=== PATIENT | female | born 1945 | race Caucasian/White ===

== ENCOUNTER 2017-11-10 13:52 | Emergency (ER) | payer MEDICARE ==
[2017-11-10] MEDS ORDERED: TETRACAINE HCL 0.5% OPH SOLN 2 ML ONE (14:14)
--- NOTE | 2017-11-10 14:44 | ER Document Report ---
ED General - General Chief Complaint: Eye Problem Stated Complaint: EYE IRRITATION/REDNESS Time Seen by Provider: 11/10/17 14:05 Mode of Arrival: Ambulatory Information source: Patient, Relative Notes: 72-year-old female with cataracts, depression, HSV-1 presents from urgent care with complaint of left eye visual change and redness. Patient states that last night she developed pain in her left eye while she was at [employer]. She states that she went to sleep and when she awoke this morning the pain was gone. She states that she did not noticed her eye was red until her daughter pointed it out. She does admit to some blurred vision in the left eye. Patient states at urgent care her visual acuity in the left eye was 20/70 this is a change from recent visual acuity of 20/15. Denies any trauma to the eye. She denies any blood thinning medications. Denies prior similar symptoms. Patient does wear eyeglasses. She denies any recent illnesses. Upon my exam patient is pain- free. She denies headache. She denies temporal artery tenderness. TRAVEL OUTSIDE OF THE [place] IN LAST 30 DAYS: No - HPI Onset: Yesterday Onset/Duration: Sudden Quality of pain: No pain Associated symptoms: None Exacerbated by: Denies Relieved by: Denies Similar symptoms previously: No Recently seen / treated by doctor: Yes - Related Data Allergies/Adverse Reactions: No Known Allergies Allergy (Verified 11/10/17 13:53) Past Medical History - General Information source: Patient - Social History Smoking Status: Former Smoker Chew tobacco use (# tins/day): No Frequency of alcohol use: None Drug Abuse: None Lives with: Spouse/Significant other Family History: Reviewed & Not Pertinent Patient has suicidal ideation: No Patient has homicidal ideation: No Renal/ Medical History: Denies: Hx Peritoneal Dialysis Psychiatric Medical History: Reports: Hx Depression Past Surgical History: Reports: Hx Orthopedic Surgery - R hand, Other - Bilateral cataract surgery Review of Systems - Review of Systems Notes: REVIEW OF SYSTEMS: CONSTITUTIONAL : Denies fever, chills, or sweats. Denies recent illness. Denies weight loss, recent hospitalizations. EENT: Denies eye pain. Denies nasal or sinus congestion or discharge. Denies sore throat, oral lesions, difficulty swallowing. CARDIOVASCULAR: Denies chest pain. Denies palpitations or racing or irregular heart beat. Denies lower extremity edema. RESPIRATORY: Denies cough, cold, or chest congestion. Denies shortness of breath, difficulty breathing, or wheezing. GASTROINTESTINAL: Denies abdominal pain or distention. Denies nausea, vomiting , or diarrhea. Denies blood in vomitus, stools, or per rectum. Denies black, tarry stools. Denies constipation. GENITOURINARY: Denies difficulty urinating, painful urination, burning, frequency, blood in urine, or vaginal discharge. MUSCULOSKELETAL: Denies back or neck pain or stiffness. Denies joint pain or swelling. SKIN: Denies rash, lesions or sores. HEMATOLOGIC : Denies easy bruising or bleeding. LYMPHATIC: Denies swollen, enlarged glands. NEUROLOGICAL: Denies confusion or altered mental status. Denies passing out or loss of consciousness. Denies dizziness or lightheadedness. Denies headache. Denies weakness or paralysis or loss of use of either side. Denies problems with gait or speech. Denies sensory loss, numbness, or tingling. Denies seizures. PSYCHIATRIC: Denies anxiety or stress. Denies depression, suicidal ideation, or homicidal ideation. Physical Exam - Notes Notes: PHYSICAL EXAMINATION: GENERAL: Well-appearing, well-nourished and in no acute distress. HEAD: Atraumatic, normocephalic. EYES: Pupils equal round and reactive to light, extraocular movements intact, extensive conjunctival hemorrhage of the left eye. No fluorescein uptake. Slit -lamp exam shows no hyphema, flare, corneal abrasion. ENT: Nares patent, oropharynx clear without exudates. Moist mucous membranes. NECK: Normal range of motion, supple without lymphadenopathy LUNGS: Breath sounds clear to auscultation bilaterally and equal. No wheezes rales or rhonchi. HEART: Regular rate and rhythm without murmurs ABDOMEN: Soft, nontender, nondistended abdomen. No guarding, no rebound. No masses appreciated. Female : deferred Musculoskeletal: Normal range of motion, no pitting or edema. No cyanosis. NEUROLOGICAL: Cranial nerves grossly intact. Normal speech, normal gait. Normal sensory, motor exams PSYCH: Normal mood, normal affect. SKIN: Warm, Dry, normal turgor, no rashes or lesions noted. - HEENT Visual acuity- Right eye: 20/20 Visual acuity- Left eye: 20/20 Visual acuity- Both eyes: 20/20 Corrective lenses worn: Yes Course - Re-evaluation Re-evalutation: 11/10/17 14:57 72-year-old female with cataracts, depression, HSV-1 presents from urgent care with complaint of left eye visual change and redness. Patient states that last night she developed pain in her left eye while she was at [employer]. She states that she went to sleep and when she awoke this morning the pain was gone. She states that she did not noticed her eye was red until her daughter pointed it out. She does admit to some blurred vision in the left eye. Patient states at urgent care her visual acuity in the left eye was 20/70 this is a change from recent visual acuity of 20/15. Denies any trauma to the eye. She denies any blood thinning medications. Denies prior similar symptoms. Patient does wear eyeglasses. She denies any recent illnesses. Upon my exam patient is pain- free. She denies headache. She denies temporal artery tenderness. Patient was seen by myself upon arrival. Vital signs were reviewed. Patient is afebrile , hypertensive and not hypoxic. Patient does not appear toxic or dehydrated. They are in no acute distress. Previous medical records and nursing notes reviewed. Significant findings include an extensive left subconjunctival hemorrhage. Patient has normal pressures of 20,18-OS , 18,20 OD, visual acuity is 20/20OD /OS/OU. Upon visual acuity patient states that her vision has greatly improved. She has no temporal artery tenderness, no significant findings on slit-lamp exam and has normal pressures. Exam is consistent with a large subconjunctival hemorrhage. Not consistent with retinal artery detachment, acute angle glaucoma, temporal arteritis. Patient provided the opportunity to ask questions, and express concerns. Discharge instructions discussed. Patient is agreeable with discharge home. Return indications explained and discussed with the patient who displays understanding. Patient encouraged to return to the emergency department immediately with any concerns. Patient was referred to [facility]. 11/10/17 15:08 Discharge - Discharge Clinical Impression: Subconjunctival hemorrhage of left eye Condition: Good Disposition: HOME, SELF-CARE Instructions: Subconjunctival Hemorrhage ([facility]) Additional Instructions: Follow up with your physician tomorrow for further care or return to the ED IMMEDIATELY if symptoms worsen or new concerns occur. If you cannot afford to follow up with your primary care physician a list of low cost clinics have been provided at the end of your discharge papers as well. Referrals: [facility] [Provider Group] - Follow up in 3-5 days
[2017-11-10 15:35] VITALS: BP 167/60
== END 2017-11-10 15:32 | disposition home or self-care (01) ==
LOC: ER 13:52
DX: H11.32 Conjunctival hemorrhage, left eye (principal); H26.9 Unspecified cataract; I10 Essential (primary) hypertension; Z87.891 Personal history of nicotine dependence
CPT/HCPCS: 99283

== ENCOUNTER 2019-09-09 17:43 | Emergency (ER) | payer MEDICARE ==
--- NOTE | 2019-09-09 17:54 | ER Document Report ---
ED Medical Screen (RME) - General Stated Complaint: POSSIBLE ETOH WITHDRAWAL Time Seen by Provider: 09/09/19 17:45 Mode of Arrival: Ambulatory Information source: Patient Notes: 74-year-old female patient presenting to the emergency department with complaints of shaking after drinking last night. Patient reports she drank an entire bottle of wine as she is very stressed out about the COVID-19 epidemic. She does report that she is an alcoholic. She states that usually when she drinks that she binge drinks. She does not believe she is withdrawing. She is very tearful in triage. I have greeted and performed a rapid initial assessment of this patient. A comprehensive ED assessment and evaluation of the patient, analysis of test results and completion of the medical decision making process will be conducted by additional ED providers. I have specifically instructed the patient or family members with the patient to immediately return to any nursing staff should anything change in the patient's condition or with their chief complaint. TRAVEL OUTSIDE OF THE [place] IN LAST 30 DAYS: No - Related Data Allergies/Adverse Reactions: No Known Allergies Allergy (Verified 11/10/17 13:53) Past Medical History Renal/ Medical History: Denies: Hx Peritoneal Dialysis Psychiatric Medical History: Reports: Hx Depression Past Surgical History: Reports: Hx Orthopedic Surgery - R hand, Other - Bilateral cataract surgery
[2019-09-09] MEDS ORDERED: LORAZEPAM INJ 2 MG/1 ML VIAL IV ONE (17:58)
--- NOTE | 2019-09-09 18:10 | ER Document Report ---
ED General - General Chief Complaint: Psych Problem Stated Complaint: POSSIBLE ETOH WITHDRAWAL Time Seen by Provider: 09/09/19 17:45 Mode of Arrival: Ambulatory Notes: 74-year-old female presents to the ER complaining of anxiety and tremors. The patient has a history of benign essential tremors. She has a history of alcoholism. She was doing well for a while but in July due to the pandemic she started drinking. She states she drinks about a bottle of wine a day. Her last drink was yesterday. She is not had anything to drink at all today. She is felt very tremulous. Era very anxious. Wants to come in and get checked out she denies any suicidal homicidal thoughts denies any hallucinations. Denies any history of seizures or delirium tremens upon withdrawal. The patient states she feels a little short of breath but denies chest pain. Feels very anxious all over. Denies fever chills cough or sore throat. Denies any falls or trauma. Her tremors and discomfort as severe. But attributes these to anxiety or withdrawal. The patient initially denied suicidal thoughts but now is endorsing suicidal thoughts. She wants to drive her car into a bridge or tree. Still denies homicidal ideation denies visual auditory hallucinations TRAVEL OUTSIDE OF THE [place] IN LAST 30 DAYS: No - Related Data Allergies/Adverse Reactions: No Known Allergies Allergy (Verified 11/10/17 13:53) Past Medical History - General Information source: Patient - Social History Smoking Status: Never Smoker Family History: Reviewed & Not Pertinent Patient has suicidal ideation: Yes Patient has homicidal ideation: No Renal/ Medical History: Denies: Hx Peritoneal Dialysis Psychiatric Medical History: Reports: Hx Depression Past Surgical History: Reports: Hx Orthopedic Surgery - R hand, Other - Bilateral cataract surgery Review of Systems - Review of Systems Constitutional: denies: Chills, Fever Cardiovascular: Dyspnea. denies: Chest pain Respiratory: Short of breath. denies: Cough Genitourinary: denies: Dysuria, Hematuria Neurological/Psychological: Anxiety, Tremor -: Yes All other systems reviewed and negative Physical Exam - Vital signs Vitals: Temp Pulse Resp BP Pulse Ox 98.9 F 104 H 24 H 150/90 H 97 09/09/19 17:46 09/09/19 17:46 09/09/19 17:46 09/09/19 17:46 09/09/19 17:46 - Notes Notes: GENERAL_APPEARANCE: well_nourished, alert, cooperative, anxious and tearful VITALS: reviewed, see vital signs table. HEAD: no_swelling\tenderness on the head. EYES: PERRL, EOMI, conjunctiva_clear. NOSE: no_nasal_discharge. MOUTH: (-)decreased moisture. THROAT: no_tonsilar_inflammation, no_airway_obstruction. no_lymphadenopathy NECK: supple, no_neck_tenderness, (-)thyromegaly. BACK: no_back_tenderness. CHEST_WALL: no_chest_tenderness. LUNGS: no_wheezing, no_rales, no_rhonchi, (-)accessory muscle use, good air exchange bilateral. HEART: normal_rate, normal_rhythm, normal_S1, normal_S2, (-)S3, (-)S4, no_murmur, no_rub. ABDOMEN: normal_BS, soft, no_abd_tenderness, (-)guarding, (-)rebound, no_organomegaly, no_abd_masses. EXTREMITIES: good pulses in all_extremities, no_swelling\tenderness in the extremities, no_edema. SKIN: warm, dry, good_color, no_rash. MENTAL_STATUS: speech_clear, oriented_X_3, anxious_affect, responds_appropriately to questions. NEURO: Neg Motor or Sensory Deficits on exam, CN 2-12 intact, DTR 2+ symmetric x 4, No cerbellar signs Course - Re-evaluation Re-evalutation: 09/09/19 18:09 74-year-old female presents with anxiety and possibly little alcohol withdrawal. We will check some generalized labs give her some IV fluids Ativan. 09/09/19 19:56 The patient now is endorsing suicidality with a plan to drive her car into something. We will continue giving her Ativan for withdrawal this may be just due to stress and anxiety from her alcohol withdrawal and anxiety. We will have the patient held in psychiatry until seen by psych in the morning. The patient is medically stable for inpatient psychiatric care at this time if required. Will prescribe PRN's. - Vital Signs Vital signs: Temp Pulse Resp BP Pulse Ox 98.9 F 104 H 16 150/90 H 94 09/09/19 17:46 09/09/19 17:46 09/09/19 19:00 09/09/19 17:46 09/09/19 19:00 - Laboratory Result Diagrams: 09/09/19 18:08 09/09/19 18:08 Laboratory results interpreted by me: 09/09/19 09/09/19 09/09/19 18:08 18:08 19:40 Hgb 15.6 H Glucose 121 H Ur Leukocyte Esterase TRACE H Urine Ascorbic Acid 40 H Salicylates < 1.0 L Acetaminophen < 10 L - EKG Interpretation by Me EKG shows normal: Sinus rhythm Rate: Normal Rhythm: NSR Discharge - Discharge Clinical Impression: Suicidal ideation, Anxiety Alcohol withdrawal Qualifiers: Complication of substance-induced condition: uncomplicated Qualified Code(s): F10.230 - Alcohol dependence with withdrawal, uncomplicated Condition: Good Disposition: OTHER
[2019-09-09 18:16] LABS: ABSOLUTE BASOPHILS # (AUTO) 0.1 10^3/uL (0.0-0.2); ABSOLUTE LYMPHOCYTES (AUTO) 2.1 10^3/uL (0.5-4.7); ABSOLUTE MONOCYTES (AUTO) 0.6 10^3/uL (0.1-1.4); ABSOLUTE NEUT (AUTO) 4.9 10^3/uL (1.7-8.2); BASOPHILS % (AUTO) 1.1 % (0-2); EOSINOPHILS % (AUTO) 0.2 % (0-6); HEMATOCRIT 45.3 % (36.0-47.0); HEMOGLOBIN 15.6 g/dL (12.0-15.5); LYMPHOCYTES % (AUTO) 27.5 % (13-45); MEAN CORPUSCULAR HEMOGLOBIN 31.2 pg (27.0-33.4); MEAN CORPUSCULAR HGB CONC 34.5 g/dL (32.0-36.0); MEAN CORPUSCULAR VOLUME 91 fl (80-97); MONOCYTES % (AUTO) 7.8 % (3-13); PLATELET COUNT 337 10^3/uL (150-450); RED BLOOD COUNT 5.01 10^6/uL (3.72-5.28); RED CELL DISTRIBUTION WIDTH 13.7 % (11.5-14.0); SEGMENTED NEUTROPHILS % (AUTO) 63.4 % (42-78); TOTAL CELLS COUNTED % (AUTO) 100 %; WHITE BLOOD COUNT 7.7 10^3/uL (4.0-10.5)
[2019-09-09 18:37] LABS: ALBUMIN 4.7 g/dL (3.5-5.0); ALKALINE PHOSPHATASE 89 U/L (38-126); ANION GAP 8 (5-19); ASPARTATE AMINO TRANSFERASE 25 U/L (14-36); BILIRUBIN,TOTAL 0.4 mg/dL (0.2-1.3); BLOOD UREA NITROGEN 11 mg/dL (7-20); CALCIUM 9.1 mg/dL (8.4-10.2); CARBON DIOXIDE 28 mmol/L (22-30); CHLORIDE 103 mmol/L (98-107); GLUCOSE 121 mg/dL (75-110); POTASSIUM 4.4 mmol/L (3.6-5.0); TOTAL PROTEIN 7.7 g/dL (6.3-8.2)
[2019-09-09 18:38] LABS: ACETAMINOPHEN < 10 ug/mL (10-30); ALCOHOL < 10 mg/dL (NONE DETECTED); SALICYLATE < 1.0 mg/dL (2.0-20.0)
[2019-09-09 19:54] LABS: APPEARANCE,URINE CLEAR; BILIRUBIN,URINE NEGATIVE (NEGATIVE); COLOR,URINE YELLOW; GLUCOSE, URINE NEGATIVE (NEGATIVE); KETONES,URINE NEGATIVE (NEGATIVE); LEUKOCYTE ESTERASE,URINE TRACE (NEGATIVE); NITRITE,URINE NEGATIVE (NEGATIVE); PROTEIN,URINE NEGATIVE (NEGATIVE); URINE SPECIFIC GRAVITY 1.013; UROBILINOGEN,URINE NEGATIVE mg/dL (<2.0)
[2019-09-09] MEDS ORDERED: LORAZEPAM 1 MG TABLET PO PRN (20:00)
[2019-09-09 20:08] LABS: URINE AMPHETAMINES SCREEN NEGATIVE; URINE BARBITURATES SCREEN NEGATIVE; URINE BENZODIAZEPINES SCREEN NEGATIVE; URINE COCAINE SCREEN NEGATIVE; URINE MARIJUANA (THC) SCREEN NEGATIVE; URINE METHADONE SCREEN NEGATIVE; URINE PHENCYCLIDINE SCREEN NEGATIVE
--- NOTE | 2019-09-10 08:17 | EKG REPORT ---
SEVERITY:- NORMAL ECG - SINUS RHYTHM : Confirmed by: Fuentes Chan 10-Sep-2019 08:16:58
[2019-09-10] MEDS ORDERED: BUSPIRONE HCL 10 MG TABLET PO SCH (13:30)
[2019-09-10] MEDS ORDERED: VENLAFAXINE HCL 37.5 MG CAP.SR.24H PO SCH (14:00)
--- NOTE | 2019-09-10 14:49 | PSYCHOLOGICAL NOTE ---
Psych Note - Psych Note Date seen by psych provider: 09/10/19 Time seen by psych provider: 12:45 Psych Note: Patient is a 74-year-old female who presents to ED via EMS for anxiety and tremors related to ETOH withdrawal. Patient states she under significant stress recently. Reports being the primary care provider to her who has diagnoses of Parkinson's disease and Alzheimers. has been spending money (i.e., purchased a motorcycle) without fully understanding the consequences. Patient states she has had to pawn jewelry in order to pay debts. Patient states she has found evidence has engaged in "virtual sex" with others that made her "feel like trash, less than human." Patient spoke of other stressors, such as the of her father in November 2018. Patient states she began drinking at age 12. States she began to binge drink in the . Patient states that she joined [employer] and was able to be sober for 6 years. In November 1999, however, patient began drinking again. Patient reports that she is not a daily drinker, however she will engage in binge drinking as described as "a bottle of wine" in one sitting. Patient denies SI/HI, and expressed frustration that she was kept overnight. Patient states no one asked further questions that would show she was not suicidal. Patient states she came to the ED out of concern she had alcohol poisoning, only. Patient is alert and oriented to person, place, time and circumstance. Mood is tearful with congruent affect. Patient denies suicidal and homicidal ideations. Delusions are absent and behavior is congruent with an intact reality based presentation (i.e., organized and linear through processes). There is no observed behavior that suggests patient is responding to internal stimuli. Patient is able to engage in organized, rational thought processes. Patient is able to express needs and wants in a logical manner. Patient denies current auditory and visual hallucinations. Eye contact is appropriate. Conversational speech is within normal rate, tone, and prosody. Intellectual ability appears to be within average range. Attention and concentration are good. Insight, judgment and impulse control are currently fair. Medication recommendations per [facility] contracted psychiatrist Dr. Wolf MD are as follows: Add Effexor 37.5, daily Add Buspar 5MG, twice a day Impression/Plan: Patient is recommended for rescind of 24 hour petition for evaluation and is cleared from acute psychiatric services. Patient presented to ED initially for concerns of alcohol poisoning. Medication recommendations have been provided. Patient has a history of EtOH abuse. Patient has no history of detox or substance abuse treatment. Patient is experiencing significant psychosocial stress related to 's diagnoses of Parkinson's disease and Alzheimer's. Patient has been coping with stressors with EtOH. Patient denies SI/HI. Patient is not in an active state of psychosis as evidenced by patient's ability to engage appropriately with clinician, is reality based, and communicat ion and thoughts are organized and linear. Patient is agreeable to voluntarily treatment at [facility] for substance abuse treatment and mental health services to learn coping and distress tolerance skills. Dr. Harman was consulted on the care and management of this patient; attending physician is in agreement with recommendations and disposition.
[2019-09-10 15:24] VITALS: BP 127/54
== END 2019-09-10 15:29 | disposition home or self-care (01) ==
LOC: ER 17:43
DX: F10.230 Alcohol dependence with withdrawal, uncomplicated (principal); R45.851 Suicidal ideations; F41.9 Anxiety disorder, unspecified; R06.02 Shortness of breath; Z63.4 Disappearance and death of family member; Z63.6 Dependent relative needing care at home
CPT/HCPCS: 93005; 99284; 96374; 36415; 80307 ×4; 83735; 85025; 80053; 81001; 93010; A9270 ×2; J2060; J3490